=== PATIENT | female | born 1995 | race American Indian/Alaskan Native ===

== ENCOUNTER 2018-09-28 11:22 | Emergency (ER) | payer MEDICAID ==
[2018-09-28 11:33] VITALS: BP 142/65
--- NOTE | 2018-09-28 11:33 | Emergency Department Report ---
Blank Doc - Documentation Documentation: Passed out on Wednesday. Injury back, teeth broken and cut chin. No PMH. LMP 09/07. This initial assessment diagnostic orders/clinical plan/treatment (s) is/Are subject to change based on patient's health status, clinical progression and re- assessment by fellow clinical providers in the ED. Further treatment and work-up at subsequent clinical providers discretion. Patient/guardians urged not to elope from s their condition may be serious if not clinically assessed and ma naged. Initial order include: CT head, UA, HCG serum, LUmbar, Thoracic, CBC, CMP
[2018-09-28 12:14] LABS: Basophils % (Auto) 1.5 % (0.0-1.8); Eosinophils % (Auto) 0.5 % (0.0-4.3); Hematocrit 38.7 % (30.3-42.9); Hemoglobin 12.6 gm/dl (10.1-14.3); Lymphocytes # (Auto) 1.4 K/mm3 (1.2-5.4); Lymphocytes % (Auto) 42.5 % (13.4-35.0); Mean Corpuscular HGB Conc 32 % (30-34); Mean Corpuscular Volume 73 fl (79-97); Monocytes # (Auto) 0.5 K/mm3 (0.0-0.8); Monocytes % (Auto) 14.8 % (0.0-7.3); Platelet Count 231 K/mm3 (140-440); Red Blood Count 5.28 M/mm3 (3.65-5.03); Red Cell Distribution Width 15.4 % (13.2-15.2)
[2018-09-28 12:15] LABS: Bacteria,Urine 1+ /HPF (Negative); Bilirubin,Urine NEG (Negative); Blood,Urine NEG (Negative); Color,Urine Yellow (Yellow); Mucus,Urine FEW /HPF; Protein,Urine <15 mg/dL mg/dL (Negative)
[2018-09-28] MEDS ORDERED: TORADOL IV ONE (12:22)
[2018-09-28] MEDS ORDERED: NACL 0.9% 1000 ML 1,000 ML IV ONE (12:22)
[2018-09-28 13:00] LABS: BUN/Creatinine Ratio 19; Blood Urea Nitrogen 15 mg/dL (7-17); Calcium 8.8 mg/dL (8.4-10.2); Hemolysis Index 15
--- NOTE | 2018-09-28 13:03 | Cat Scan Report ---
CT HEAD WITHOUT CONTRAST: HISTORY: Passed out. TECHNIQUE: Sequential 2.5mm CT images. COMPARISON: none. FINDINGS: Cerebral Parenchyma: Within normal limits. Cerebellum: Within normal limits. Brainstem: Within normal limits. Ventricles: Normal. Sella: Normal. Extra-axial spaces: Normal. Basal Cisterns: Normal. Intracranial Hemorrhage: None. Midline Shift: None. Calvarium: Normal. Sinuses: Normal. Mastoid Air Cells: Normal. Visualized Orbits: Normal. IMPRESSION: Cranial CT scan within normal limits.
--- NOTE | 2018-09-28 13:03 | XRay Report ---
AP AND LATERAL LUMBOSACRAL SPINE: History: Back pain. The vertebral bodies are well mineralized and normal in alignment and vertebral height with well preserved interspace distances. The visualized portions of the posterior elements are normal. IMPRESSION: Normal study.
--- NOTE | 2018-09-28 13:03 | XRay Report ---
THORACIC SPINE, 2 VIEWS: HISTORY: back pain. Normal bone mineralization. No evidence for compression deformity, malalignment, or bone lesion. The posterior ribs are intact. The paraspinal soft tissues are within normal limits. IMPRESSION: Thoracic spine within normal limits.
--- NOTE | 2018-09-28 13:52 | Emergency Department Report ---
ED Syncope HPI - General Chief Complaint: Syncope Stated Complaint: FAINTED/NOT FELLING WELL Time Seen by Provider: 09/28/18 11:27 - History of Present Illness Initial Comments: Patient is a 23-year-old female who is presenting with body aches and headache after syncopal episode. 4 days ago patient donated plasma afterwards she went to a friend's house for [employer] and had a syncopal episode. Patient states she got very hot and dizzy and then passed out. The patient fell to the ground and hit her chin. There was a laceration of his she did not come in to have this repaired. Patient states she has generalized body aches all over to 9 out of 10. She does state she has a headache as well that is throbbing and aching. Patient believes she may have hit her head. Patient denies any nausea vomiting or any further episodes of syncope. - Related Data Allergies/Adverse Reactions: Allergies No Known Allergies Allergy (Verified 09/28/18 11:26) Home Medications: Ambulatory Orders Iron 06/18/13 valACYclovir [Valtrex] 500 mg PO BID 06/18/13 Ondansetron [Zofran Odt] 4 mg PO Q6HR #20 tab.rapdis 04/22/15 traMADol [Ultram] 50 mg PO Q6HR PRN #14 tablet 04/22/15 HYDROcodone/APAP 5-325 [[place] 5/325] 1 each PO Q4HR PRN #12 tablet 09/28/18 Ibuprofen [Motrin] 600 mg PO Q8H PRN #20 tablet 09/28/18 methOCARBAMOL [Robaxin TAB] 500 mg PO Q6H PRN #15 tablet 09/28/18 ED Review of Systems ROS: Stated complaint: FAINTED/NOT FELLING WELL Other details as noted in HPI Comment: All other systems reviewed and negative ED Past Medical Hx - Past Medical History Previous Medical History?: No Hx Hypertension: No Hx Congestive Heart Failure: No Hx Diabetes: No Hx Deep Vein Thrombosis: No Hx Renal Disease: No Hx Sickle Cell Disease: No Hx Seizures: No Hx Asthma: No Hx COPD: No Hx HIV: No - Surgical History Past Surgical History?: No - Social History Smoking Status: Never Smoker Substance Use Type: None - Medications Home Medications: Home Medications Medication Instructions Recorded Confirmed Last Taken Type Iron 06/18/13 06/18/13 Unknown History valACYclovir [Valtrex] 500 mg PO BID 06/18/13 06/18/13 06/17/13 18:00 History Ondansetron [Zofran Odt] 4 mg PO Q6HR #20 tab.rapdis 04/22/15 Unknown Rx traMADol [Ultram] 50 mg PO Q6HR PRN #14 tablet 04/22/15 Unknown Rx HYDROcodone/APAP 5-325 [[place] 1 each PO Q4HR PRN #12 tablet 09/28/18 Unknown Rx 5/325] Ibuprofen [Motrin] 600 mg PO Q8H PRN #20 tablet 09/28/18 Unknown Rx methOCARBAMOL [Robaxin TAB] 500 mg PO Q6H PRN #15 tablet 09/28/18 Unknown Rx ED Physical Exam - General Limitations: No Limitations General appearance: alert, in no apparent distress - Head Head exam: Present: atraumatic, normocephalic - Eye Eye exam: Present: normal appearance - ENT ENT exam: Present: mucous membranes moist - Neck Neck exam: Present: normal inspection - Respiratory Respiratory exam: Present: normal lung sounds bilaterally. Absent: respiratory distress, wheezes, rales, rhonchi - Cardiovascular Cardiovascular Exam: Present: normal rhythm, tachycardia. Absent: regular rate, systolic murmur, diastolic murmur, rubs, gallop - GI/Abdominal GI/Abdominal exam: Present: soft, normal bowel sounds. Absent: distended, tenderness, guarding, rebound - Extremities Exam Extremities exam: Present: normal inspection. Absent: joint swelling - Back Exam Back exam: Present: normal inspection, paraspinal tenderness - Neurological Exam Neurological exam: Present: alert, oriented X3 - Psychiatric Psychiatric exam: Present: normal affect, normal mood - Skin Skin exam: Present: warm, dry, intact, normal color. Absent: rash ED Course Vital Signs 09/28/18 09/28/18 11:30 13:02 Temperature 98.1 F Pulse Rate 106 H Respiratory 18 15 Rate Blood Pressure 142/65 O2 Sat by Pulse 100 Oximetry ED Medical Decision Making - Lab Data Result diagrams: 09/28/18 11:43 09/28/18 11:43 Lab Results 09/28/18 09/28/18 09/28/18 Range/Units 11:43 11:43 11:43 WBC 3.3 L (4.5-11.0) K/mm3 RBC 5.28 H (3.65-5.03) M/mm3 Hgb 12.6 (10.1-14.3) gm/dl Hct 38.7 (30.3-42.9) % MCV 73 L (79-97) fl MCH 24 L (28-32) pg MCHC 32 (30-34) % RDW 15.4 H (13.2-15.2) % Plt Count 231 (140-440) K/mm3 Lymph % (Auto) 42.5 H (13.4-35.0) % [place] % (Auto) 14.8 H (0.0-7.3) % Eos % (Auto) 0.5 (0.0-4.3) % Baso % (Auto) 1.5 (0.0-1.8) % Lymph # 1.4 (1.2-5.4) K/mm3 [place] # 0.5 (0.0-0.8) K/mm3 Eos # 0.0 (0.0-0.4) K/mm3 Baso # 0.0 (0.0-0.1) K/mm3 Seg Neutrophils % 40.7 (40.0-70.0) % Seg Neutrophils # 1.3 L (1.8-7.7) K/mm3 Sodium (137-145) mmol/L Potassium (3.6-5.0) mmol/L Chloride (98-107) mmol/L Carbon Dioxide (22-30) mmol/L Anion Gap mmol/L BUN (7-17) mg/dL Creatinine (0.7-1.2) mg/dL Estimated GFR ml/min BUN/Creatinine Ratio % Glucose (65-100) mg/dL Calcium (8.4-10.2) mg/dL Total Creatine Kinase (30-135) units/L HCG, Qual Negative (Negative) Urine Color Yellow (Yellow) Urine Turbidity Clear (Clear) Urine pH 5.0 (5.0-7.0) Ur Specific [place] 1.026 (1.003-1.030) Urine Protein <15 mg/dl (Negative) mg/dL Urine Glucose (UA) Neg (Negative) mg/dL Urine Ketones Neg (Negative) mg/dL Urine Blood Neg (Negative) Urine Nitrite Neg (Negative) Urine Bilirubin Neg (Negative) Urine Urobilinogen 2.0 (<2.0) mg/dL Ur Leukocyte Esterase Neg (Negative) Urine WBC (Auto) 2.0 (0.0-6.0) /HPF Urine RBC (Auto) 4.0 (0.0-6.0) /HPF U Epithel Cells (Auto) 3.0 (0-13.0) /HPF Urine Bacteria (Auto) 1+ (Negative) /HPF Urine Mucus Few /HPF 09/28/18 Range/Units 11:43 WBC (4.5-11.0) K/mm3 RBC (3.65-5.03) M/mm3 Hgb (10.1-14.3) gm/dl Hct (30.3-42.9) % MCV (79-97) fl MCH (28-32) pg MCHC (30-34) % RDW (13.2-15.2) % Plt Count (140-440) K/mm3 Lymph % (Auto) (13.4-35.0) % [place] % (Auto) (0.0-7.3) % Eos % (Auto) (0.0-4.3) % Baso % (Auto) (0.0-1.8) % Lymph # (1.2-5.4) K/mm3 [place] # (0.0-0.8) K/mm3 Eos # (0.0-0.4) K/mm3 Baso # (0.0-0.1) K/mm3 Seg Neutrophils % (40.0-70.0) % Seg Neutrophils # (1.8-7.7) K/mm3 Sodium 139 (137-145) mmol/L Potassium 3.5 L (3.6-5.0) mmol/L Chloride 100.7 (98-107) mmol/L Carbon Dioxide 26 (22-30) mmol/L Anion Gap 16 mmol/L BUN 15 (7-17) mg/dL Creatinine 0.8 (0.7-1.2) mg/dL Estimated GFR > 60 ml/min BUN/Creatinine Ratio 19 % Glucose 90 (65-100) mg/dL Calcium 8.8 (8.4-10.2) mg/dL Total Creatine Kinase 102 (30-135) units/L HCG, Qual (Negative) Urine Color (Yellow) Urine Turbidity (Clear) Urine pH (5.0-7.0) Ur Specific [place] (1.003-1.030) Urine Protein (Negative) mg/dL Urine Glucose (UA) (Negative) mg/dL Urine Ketones (Negative) mg/dL Urine Blood (Negative) Urine Nitrite (Negative) Urine Bilirubin (Negative) Urine Urobilinogen (<2.0) mg/dL Ur Leukocyte Esterase (Negative) Urine WBC (Auto) (0.0-6.0) /HPF Urine RBC (Auto) (0.0-6.0) /HPF U Epithel Cells (Auto) (0-13.0) /HPF Urine Bacteria (Auto) (Negative) /HPF Urine Mucus /HPF - Radiology Data CT the head without contrast was ordered secondary to her syncope and closed head injury and was negative. X-ray of her L-spine and T-spine are within normal limits. - Medical Decision Making Patient was hydrated and is feeling somewhat improved. Patient's CK is within normal limits she is not in rhabdomyolysis. Patient likely just with simple muscle strain secondary to a fall. The patient with persistent headache and likely has a postconcussive syndrome. Critical care attestation.: If time is entered above; I have spent that time in minutes in the direct care of this critically ill patient, excluding procedure time. ED Disposition Clinical Impression: Dehydration, Syncope and collapse Concussion Qualifiers: Encounter type: initial encounter Loss of consciousness presence/duration: without LOC Qualified Code(s): S06.0X0A - Concussion without loss of consciousness, initial encounter Back strain Qualifiers: Encounter type: initial encounter Qualified Code(s): S39.012A - Strain of muscle, fascia and tendon of lower back, initial encounter Disposition: DC-01 TO HOME OR SELFCARE Is pt being admited?: No Does the pt Need Aspirin: No Condition: Stable Instructions: Syncope (ED), Muscle Strain (ED), Post Concussion Syndrome (ED) Referrals: AMBER KEVIN MD [Primary Care Provider] - 3-5 Days Time of Disposition: 13:52
== END 2018-09-28 14:06 | disposition home or self-care (01) ==
LOC: ED 11:22
DX: S06.0X0A Concussion without loss of consciousness, initial encounter (principal); S39.012A Strain of muscle, fascia and tendon of lower back, initial encounter; E86.0 Dehydration; W18.39XA Other fall on same level, initial encounter; Y93.89 Activity, other specified; Y92.098 Other place in other non-institutional residence as the place of occurrence of the external cause; Y99.8 Other external cause status
CPT/HCPCS: 36415; 70450; 72070; 72100; 80048; 81001; 82550; 84703; 85025; 96361; 96374; 99284; J1885; J7030

== ENCOUNTER 2020-07-06 18:33 | Emergency (ER) | payer MEDICAID ==
[2020-07-06 18:49] VITALS: BP 131/60
--- NOTE | 2020-07-06 20:45 | Emergency Department Report ---
ED ENT HPI - General Chief complaint: Dental/Oral Stated complaint: TOOTH ABSCESS Time Seen by Provider: 07/06/20 20:30 Source: patient Mode of arrival: Ambulatory Limitations: No Limitations - History of Present Illness Initial comments: Patient is a 24-year-old female that presents emergency room with complaints of left back tooth pain. Patient states she is having pain in her wisdom teeth. Patient states it started 4 days ago. Patient states the pain is a 10 out of 10. Patient dates she is taken Tylenol with some relief. Patient states she n eeds a antibiotic. Patient states she has an appointment already with a dentist. Patient denies fever and chills. Patient denies chest pain or shortness of breath. Patient states she is 29 weeks . Patient denies any abdominal pain. Patient denies any loss of fluid per vagina. Patient denies vaginal bleeding. Patient denies nausea vomiting. Patient denies recent travel. Patient denies recent international travel. Patient denies exposure to the novel coronavirus. Patient denies sick contacts. Patient denies fever and chills. Patient denies cough. Patient denies diarrhea. Patient denies coming in contact with anybody with symptoms of the novel coronavirus. MD complaint: tooth pain -: Sudden, days(s) Location: tooth # Severity: severe Severity scale (0 -10): 10 Consistency: constant Improves with: rest Worsens with: eating Context- Dental: history of dental caries Associated Symptoms: gum swelling, toothache - Related Data Home Medications Medication Instructions Recorded Confirmed Last Taken Iron 06/18/13 06/18/13 Unknown valACYclovir [Valtrex] 500 mg PO BID 06/18/13 06/18/13 06/17/13 18:00 Previous Rx's Medication Instructions Recorded Last Taken Type Ondansetron [Zofran Odt] 4 mg PO Q6HR #20 tab.rapdis 04/22/15 Unknown Rx traMADoL [Ultram] 50 mg PO Q6HR PRN #14 tablet 04/22/15 Unknown Rx HYDROcodone/APAP 5-325 [[place] 1 each PO Q4HR PRN #12 tablet 09/28/18 Unknown Rx 5/325] methOCARBAMOL [Robaxin TAB] 500 mg PO Q6H PRN #15 tablet 09/28/18 Unknown Rx Ibuprofen [Motrin 600 MG tab] 600 mg PO Q8H PRN #20 tablet 12/05/18 Unknown Rx cephALEXin [Keflex] 500 mg PO Q12HR #14 cap 12/05/18 Unknown Rx Amoxicillin [Amoxicillin TAB] 875 mg PO BID 10 Days #20 tab 07/06/20 Unknown Rx Allergies Allergy/AdvReac Type Severity Reaction Status Date / Time No Known Allergies Allergy Verified 09/28/18 11:26 ED Dental HPI - General Chief complaint: Dental/Oral Stated complaint: TOOTH ABSCESS Time Seen by Provider: 07/06/20 20:40 Source: patient Mode of arrival: Ambulatory Limitations: No Limitations - Related Data Home Medications Medication Instructions Recorded Confirmed Last Taken Iron 06/18/13 06/18/13 Unknown valACYclovir [Valtrex] 500 mg PO BID 06/18/13 06/18/13 06/17/13 18:00 Previous Rx's Medication Instructions Recorded Last Taken Type Ondansetron [Zofran Odt] 4 mg PO Q6HR #20 tab.rapdis 04/22/15 Unknown Rx traMADoL [Ultram] 50 mg PO Q6HR PRN #14 tablet 04/22/15 Unknown Rx HYDROcodone/APAP 5-325 [[place] 1 each PO Q4HR PRN #12 tablet 09/28/18 Unknown Rx 5/325] methOCARBAMOL [Robaxin TAB] 500 mg PO Q6H PRN #15 tablet 09/28/18 Unknown Rx Ibuprofen [Motrin 600 MG tab] 600 mg PO Q8H PRN #20 tablet 12/05/18 Unknown Rx cephALEXin [Keflex] 500 mg PO Q12HR #14 cap 12/05/18 Unknown Rx Amoxicillin [Amoxicillin TAB] 875 mg PO BID 10 Days #20 tab 07/06/20 Unknown Rx Allergies Allergy/AdvReac Type Severity Reaction Status Date / Time No Known Allergies Allergy Verified 09/28/18 11:26 ED Review of Systems ROS: Stated complaint: TOOTH ABSCESS Other details as noted in HPI Constitutional: denies: chills, fever Eyes: denies: eye pain, eye discharge, vision change ENT: dental pain. denies: ear pain, throat pain Respiratory: denies: cough, shortness of breath, wheezing Cardiovascular: denies: chest pain, palpitations Endocrine: no symptoms reported Gastrointestinal: denies: abdominal pain, nausea, diarrhea Genitourinary: denies: urgency, dysuria, discharge Musculoskeletal: denies: back pain, joint swelling, arthralgia Skin: denies: rash, lesions Neurological: denies: headache, weakness, paresthesias Psychiatric: denies: anxiety, depression Hematological/Lymphatic: denies: easy bleeding, easy bruising ED Past Medical Hx - Past Medical History Previous Medical History?: Yes Hx Hypertension: No Hx Congestive Heart Failure: No Hx Diabetes: No Hx Deep Vein Thrombosis: No Hx Renal Disease: No Hx Sickle Cell Disease: No Hx Seizures: No Hx Asthma: No Hx COPD: No Hx HIV: No - Surgical History Past Surgical History?: No - Family History Family history: no significant - Social History Smoking Status: Never Smoker Substance Use Type: None - Medications Home Medications: Home Medications Medication Instructions Recorded Confirmed Last Taken Type Iron 06/18/13 06/18/13 Unknown History valACYclovir [Valtrex] 500 mg PO BID 06/18/13 06/18/13 06/17/13 18:00 History Ondansetron [Zofran Odt] 4 mg PO Q6HR #20 tab.rapdis 04/22/15 Unknown Rx traMADoL [Ultram] 50 mg PO Q6HR PRN #14 tablet 04/22/15 Unknown Rx HYDROcodone/APAP 5-325 [[place] 1 each PO Q4HR PRN #12 tablet 09/28/18 Unknown Rx 5/325] methOCARBAMOL [Robaxin TAB] 500 mg PO Q6H PRN #15 tablet 09/28/18 Unknown Rx Ibuprofen [Motrin 600 MG tab] 600 mg PO Q8H PRN #20 tablet 12/05/18 Unknown Rx cephALEXin [Keflex] 500 mg PO Q12HR #14 cap 12/05/18 Unknown Rx Amoxicillin [Amoxicillin TAB] 875 mg PO BID 10 Days #20 tab 07/06/20 Unknown Rx ED Physical Exam - General Limitations: No Limitations General appearance: alert, in no apparent distress - Head Head exam: Present: atraumatic, normocephalic - Eye Eye exam: Present: normal appearance - ENT ENT exam: Present: mucous membranes moist, other (Patient has gingival inflammation at the left lower posterior teeth. No abscess noted.) - Neck Neck exam: Present: normal inspection - Respiratory Respiratory exam: Present: normal lung sounds bilaterally. Absent: respiratory distress - Cardiovascular Cardiovascular Exam: Present: regular rate, normal rhythm. Absent: systolic murmur, diastolic murmur, rubs, gallop - GI/Abdominal GI/Abdominal exam: Present: soft, normal bowel sounds - Extremities Exam Extremities exam: Present: normal inspection - Back Exam Back exam: Present: normal inspection - Neurological Exam Neurological exam: Present: alert, oriented X3 - Psychiatric Psychiatric exam: Present: normal affect, normal mood - Skin Skin exam: Present: warm, dry, intact, normal color. Absent: rash ED Course Vital Signs 07/06/20 07/06/20 18:47 18:49 Temperature 98.6 F 98.6 F Pulse Rate 89 89 Respiratory 18 18 Rate Blood Pressure 131/60 Blood Pressure 131/60 [Right] O2 Sat by Pulse 98 98 Oximetry - Reevaluation(s) Reevaluation #1: I discussed all results and clinical findings with patient. I discussed plan of care with patient. Patient agrees with plan of care. Patient is stable for discharge. Patient will be discharged home. Patient given discharge instructions. Patient voiced understanding of discharge instructions. 07/06/20 20:44 ED Medical Decision Making - Medical Decision Making Patient is a 24-year-old female that is 7 months that presents emergency room with dental pain. Patient will be given a prescription for amoxicillin. Patient instructed to take Tylenol. Patient instructed to see a dentist soon as possible. Patient not require further investigation or emergency medical services. Patient stable for discharge. Patient discharged home. - Differential Diagnosis Dental pain, gingivitis, dental abscess, dental infection. Critical care attestation.: If time is entered above; I have spent that time in minutes in the direct care of this critically ill patient, excluding procedure time. ED Disposition Clinical Impression: Gingivitis, Pain, dental Disposition: DC-01 TO HOME OR SELFCARE Is pt being admited?: No Does the pt Need Aspirin: No Condition: Stable Instructions: Preventive Dental Care, Adult, Dental Caries, Pediatric Additional Instructions: Patient to follow-up with primary care in 2 to 3 days. Patient to follow-up with dentist in 2 to 3 days. Patient to follow-up with [facility] TECHNICIAN in 2 to 3 days. Patient to rest. Patient to increase water. Patient to avoid strenuous exercise or heavy lifting until cleared by [facility] TECHNICIAN. Patient to take Tylenol as needed for pain. Patient to take meds as directed. Patient to return to the ER if condition worsens, changes or new symptoms arise. Prescriptions: Amoxicillin [Amoxicillin TAB] 875 mg PO BID 10 Days #20 tab Time of Disposition: 20:45
== END 2020-07-06 21:00 | disposition home or self-care (01) ==
LOC: ED 18:33
DX: O99.611 Diseases of the digestive system complicating pregnancy, first trimester (principal); K05.10 Chronic gingivitis, plaque induced; K08.89 Other specified disorders of teeth and supporting structures; Z3A.01 Less than 8 weeks gestation of pregnancy; Z79.1 Long term (current) use of non-steroidal anti-inflammatories (NSAID); Z79.2 Long term (current) use of antibiotics; Z79.899 Other long term (current) drug therapy
CPT/HCPCS: 99282

== ENCOUNTER 2020-08-03 06:15 | Emergency (ER) | payer MEDICAID ==
[2020-08-03 06:23] VITALS: BP 133/51
[2020-08-03] MEDS ORDERED: LIDOCAINE VISCOUS 2% 15 ML ORAL LIQD PO ONE (07:34)
--- NOTE | 2020-08-03 07:47 | Emergency Department Report ---
HPI - General Chief Complaint: Dental/Oral Time Seen by Provider: 08/03/20 07:20 - HPI HPI: Room 29 The patient is a 24-year-old female present with a chief complaint of dental pain. The patient complains of dental pain in the left lower wisdom tooth which she states began again today. Patient states she had the same problem 1 month ago when she came to the ED was given prescription for amoxicillin. Patient states her pain had improved and she has not yet been able to see a dentist. The patient is . Patient denies vaginal bleeding or fever ED Past Medical Hx - Past Medical History Previous Medical History?: No - Surgical History Past Surgical History?: No - Family History Family history: no significant - Social History Smoking Status: Former Smoker (None x2 years) Substance Use Type: None (Denies illicit drug use) - Medications Home Medications: Home Medications Medication Instructions Recorded Confirmed Last Taken Type Iron 06/18/13 06/18/13 Unknown History valACYclovir [Valtrex] 500 mg PO BID 06/18/13 06/18/13 06/17/13 18:00 History Ondansetron [Zofran Odt] 4 mg PO Q6HR #20 tab.rapdis 04/22/15 Unknown Rx traMADoL [Ultram] 50 mg PO Q6HR PRN #14 tablet 04/22/15 Unknown Rx HYDROcodone/APAP 5-325 [[place] 1 each PO Q4HR PRN #12 tablet 09/28/18 Unknown Rx 5/325] methOCARBAMOL [Robaxin TAB] 500 mg PO Q6H PRN #15 tablet 09/28/18 Unknown Rx Ibuprofen [Motrin 600 MG tab] 600 mg PO Q8H PRN #20 tablet 12/05/18 Unknown Rx cephALEXin [Keflex] 500 mg PO Q12HR #14 cap 12/05/18 Unknown Rx Amoxicillin [Amoxicillin TAB] 875 mg PO BID 10 Days #20 tab 07/06/20 Unknown Rx Amoxicillin [Amoxicillin TAB] 875 mg PO BID #20 tablet 08/03/20 Unknown Rx ED Review of Systems ROS: Stated complaint: ABSCESS Other details as noted in HPI Constitutional: denies: fever ENT: dental pain Genitourinary: denies: abnormal menses Physical Exam - Physical Exam Vital Signs: Vital Signs 08/03/20 06:19 Temperature 97.8 F Pulse Rate 94 H Respiratory 18 Rate Blood Pressure 133/51 O2 Sat by Pulse 98 Oximetry Physical Exam: GENERAL: The patient is well-developed well-nourished female sitting in chair not appearing to be in acute distress HEENT: Normocephalic. Atraumatic. Extraocular motions are intact. Patient has moist mucous membranes. Left lower wisdom tooth eruption. No gingival erythema or swelling appreciated NECK: Trachea midline CHEST/LUNGS: There is no respiratory distress noted. ABDOMEN: Abdomen is gravid SKIN: There is no rash. There is no edema. There is no diaphoresis. NEURO: The patient is awake, alert, and oriented. The patient is cooperative. The patient has normal speech MUSCULOSKELETAL: There is no evidence of acute injury. ED Course Vital Signs 08/03/20 06:19 Temperature 97.8 F Pulse Rate 94 H Respiratory 18 Rate Blood Pressure 133/51 O2 Sat by Pulse 98 Oximetry - Reevaluation(s) Reevaluation #1: 08/03/20 07:56 Patient refusing heart tones ED Medical Decision Making - Differential Diagnosis Dental pain Critical care attestation.: If time is entered above; I have spent that time in minutes in the direct care of this critically ill patient, excluding procedure time. ED Disposition Clinical Impression: Pain, dental Disposition: DC-01 TO HOME OR SELFCARE Is pt being admited?: No Does the pt Need Aspirin: No Condition: Stable Additional Instructions: Return to the emergency department should you develop worsening symptoms, inability to tolerate food or liquids, high fever or any other concerns Prescriptions: Amoxicillin [Amoxicillin TAB] 875 mg PO BID #20 tablet Referrals: PRIMARY CARE [Primary Care Provider] - 3-5 Days Time of Disposition: 07:56
== END 2020-08-03 08:07 | disposition home or self-care (01) ==
LOC: ED 06:15
DX: K08.89 Other specified disorders of teeth and supporting structures (principal); Z87.891 Personal history of nicotine dependence; Z79.1 Long term (current) use of non-steroidal anti-inflammatories (NSAID); Z79.2 Long term (current) use of antibiotics; Z79.899 Other long term (current) drug therapy
CPT/HCPCS: 99282

== ENCOUNTER 2020-08-19 08:06 | Emergency (ER) | payer MEDICAID ==
[2020-08-19 08:15] VITALS: BP 143/69
[2020-08-19] MEDS ORDERED: ACETAMINOPHEN W/CODEINE 300-30 MG TAB PO ONE (08:22)
--- NOTE | 2020-08-19 08:26 | Emergency Department Report ---
ED General Adult HPI - General Chief complaint: Dental/Oral Stated complaint: ABSCESS IN MOUTH/8 MONTHS Time Seen by Provider: 08/19/20 08:22 Source: patient Mode of arrival: Ambulatory Limitations: No Limitations - History of Present Illness Initial comments: 25-year-old -Polish female patient who is 8 months presents with complaints of worsening left lower dental pain for the past few days. Patient states she was seen here on 12/19 and 08/03/2020 for the same dental pain. She states postop she was prescribed amoxicillin and her pain did improve. She states the pain has now worsened. She denies dysphagia or difficulty opening her jaw, fever/chills/sweats, cough, or chest pain. Patient rates her pain as a 10/10 in severity and states Tylenol is not helping. - Related Data Home Medications Medication Instructions Recorded Confirmed Last Taken Iron 06/18/13 06/18/13 Unknown valACYclovir [Valtrex] 500 mg PO BID 06/18/13 06/18/13 06/17/13 18:00 Previous Rx's Medication Instructions Recorded Last Taken Type Ondansetron [Zofran Odt] 4 mg PO Q6HR #20 tab.rapdis 04/22/15 Unknown Rx traMADoL [Ultram] 50 mg PO Q6HR PRN #14 tablet 04/22/15 Unknown Rx HYDROcodone/APAP 5-325 [Arlee 1 each PO Q4HR PRN #12 tablet 09/28/18 Unknown Rx 5/325] methOCARBAMOL [Robaxin TAB] 500 mg PO Q6H PRN #15 tablet 09/28/18 Unknown Rx Ibuprofen [Motrin 600 MG tab] 600 mg PO Q8H PRN #20 tablet 12/05/18 Unknown Rx cephALEXin [Keflex] 500 mg PO Q12HR #14 cap 12/05/18 Unknown Rx Amoxicillin [Amoxicillin TAB] 875 mg PO BID 10 Days #20 tab 07/06/20 Unknown Rx Amoxicillin [Amoxicillin TAB] 875 mg PO BID #20 tablet 08/03/20 Unknown Rx Acetaminophen/Codeine [Tylenol 1 tab PO TID PRN #10 tablet 08/19/20 Unknown Rx /Codeine # 3 tab] Clindamycin [Clindamycin CAP] 300 mg PO Q6H 10 Days #40 capsule 08/19/20 Unknown Rx Allergies Allergy/AdvReac Type Severity Reaction Status Date / Time No Known Allergies Allergy Verified 09/28/18 11:26 ED Review of Systems ROS: Stated complaint: ABSCESS IN MOUTH/8 MONTHS Other details as noted in HPI Constitutional: denies: chills, fever, malaise ENT: dental pain. denies: ear pain Respiratory: denies: cough, shortness of breath Cardiovascular: denies: chest pain Gastrointestinal: denies: abdominal pain, nausea, vomiting Skin: denies: change in color Hematological/Lymphatic: denies: swollen glands ED Past Medical Hx - Past Medical History Hx Hypertension: No Hx Congestive Heart Failure: No Hx Diabetes: No Hx Deep Vein Thrombosis: No Hx Renal Disease: No Hx Sickle Cell Disease: No Hx Seizures: No Hx Asthma: No Hx COPD: No Hx HIV: No - Social History Smoking Status: Never Smoker - Medications Home Medications: Home Medications Medication Instructions Recorded Confirmed Last Taken Type Iron 06/18/13 06/18/13 Unknown History valACYclovir [Valtrex] 500 mg PO BID 06/18/13 06/18/13 06/17/13 18:00 History Ondansetron [Zofran Odt] 4 mg PO Q6HR #20 tab.rapdis 04/22/15 Unknown Rx traMADoL [Ultram] 50 mg PO Q6HR PRN #14 tablet 04/22/15 Unknown Rx HYDROcodone/APAP 5-325 [Arlee 1 each PO Q4HR PRN #12 tablet 09/28/18 Unknown Rx 5/325] methOCARBAMOL [Robaxin TAB] 500 mg PO Q6H PRN #15 tablet 09/28/18 Unknown Rx Ibuprofen [Motrin 600 MG tab] 600 mg PO Q8H PRN #20 tablet 12/05/18 Unknown Rx cephALEXin [Keflex] 500 mg PO Q12HR #14 cap 12/05/18 Unknown Rx Amoxicillin [Amoxicillin TAB] 875 mg PO BID 10 Days #20 tab 07/06/20 Unknown Rx Amoxicillin [Amoxicillin TAB] 875 mg PO BID #20 tablet 08/03/20 Unknown Rx Acetaminophen/Codeine [Tylenol 1 tab PO TID PRN #10 tablet 08/19/20 Unknown Rx /Codeine # 3 tab] Clindamycin [Clindamycin CAP] 300 mg PO Q6H 10 Days #40 capsule 08/19/20 Unknown Rx ED Physical Exam - General Limitations: No Limitations General appearance: alert, in no apparent distress - Head Head exam: Present: atraumatic, normocephalic - Eye Eye exam: Present: normal appearance. Absent: scleral icterus - ENT ENT exam: Present: mucous membranes moist - Expanded ENT Exam Expanded Mouth exam: Present: tongue normal. Absent: drooling, trismus 1 - Dental Tenderness (Small dental abscess noted without overlying facial swelling) Throat exam: Positive: normal inspection - Neck Neck exam: Present: normal inspection, full ROM. Absent: lymphadenopathy - Respiratory Respiratory exam: Absent: respiratory distress - Cardiovascular Cardiovascular Exam: Present: regular rate - Extremities Exam Extremities exam: Present: full ROM - Back Exam Back exam: Present: normal inspection - Neurological Exam Neurological exam: Present: alert, oriented X3 - Psychiatric Psychiatric exam: Present: normal affect, normal mood - Skin Skin exam: Present: warm, dry, intact, normal color. Absent: rash ED Course Vital Signs 08/19/20 08:11 Temperature 98.3 F Pulse Rate 89 Respiratory 18 Rate Blood Pressure 143/69 O2 Sat by Pulse 99 Oximetry ED Medical Decision Making - Medical Decision Making 25-year-old -[place]ish female patient who is 8 months presents with complaints of worsening left lower dental pain for the past few days. Patient states she was seen here on 12/19 and 08/03/2020 for the same dental pain. She states postop she was prescribed amoxicillin and her pain did improve. She states the pain has now worsened. She denies dysphagia or difficulty opening her jaw, fever/chills/sweats, cough, or chest pain. Patient rates her pain as a 10/10 in severity and states Tylenol is not helping. Small dental abscess noted on exam without facial swelling. Needle aspiration performed and no purulent drainage obtained. Patient to discharge home with clindamycin and Tylenol 3. Discussed for patient to use Tylenol 3 only when pain is severe and also discussed possible drowsiness associated with medication. Patient to follow-up with dental specialist within 48 hours, dental specialist clinic list provided to patient. Strict return precautions were discussed in great detail with patient who verbalizes understanding. Critical care attestation.: If time is entered above; I have spent that time in minutes in the direct care of this critically ill patient, excluding procedure time. ED Disposition Clinical Impression: Dental abscess Disposition: TO HOME OR SELFCARE Is pt being admited?: No Condition: Stable Instructions: Dental Abscess Prescriptions: Clindamycin [Clindamycin CAP] 300 mg PO Q6H 10 Days #40 capsule Acetaminophen/Codeine [Tylenol /Codeine # 3 tab] 1 tab PO TID PRN #10 tablet PRN Reason: Pain , Severe (7-10)
== END 2020-08-19 08:22 | disposition home or self-care (01) ==
LOC: ED 08:06
DX: O99.611 Diseases of the digestive system complicating pregnancy, first trimester (principal); K04.7 Periapical abscess without sinus; Z3A.08 8 weeks gestation of pregnancy; Z79.1 Long term (current) use of non-steroidal anti-inflammatories (NSAID); Z79.2 Long term (current) use of antibiotics; Z79.899 Other long term (current) drug therapy
CPT/HCPCS: 99282